=== PATIENT | female | born 1975 | race Two or more races ===

== ENCOUNTER 2020-11-05 09:44 | Outpatient (CLI) | payer OTHER | END 2020-11-05 23:59 | disposition home or self-care (01) | LOC: LAB 09:44 | PROVIDERS: ATTEND Specialist | DX: Z01.812 Encounter for preprocedural laboratory examination (principal); Z20.822 Contact with and (suspected) exposure to COVID-19 | CPT/HCPCS: 87426; C9803 ×2; U0003 ==

== ENCOUNTER 2020-11-10 06:46 | Day surgery (SDC) | payer OTHER ==
[2020-11-10] MEDS ORDERED: MIDAZOLAM HCL 2 MG/2ML VIAL ONE (07:57)
[2020-11-10] MEDS ORDERED: FENTANYL PF 250MCG/5ML AMPUL ONE (07:57)
[2020-11-10] MEDS ORDERED: HYDROMORPHONE INJ 2 MG/ML DISP.SYRIN ONE (07:58)
[2020-11-10] MEDS ORDERED: FENTANYL PF 100MCG/2ML AMPUL ONE (07:58)
[2020-11-10] MEDS ORDERED: ROCURONIUM BROMIDE 50 MG/5 ML ONE (07:59)
[2020-11-10] MEDS ORDERED: BUPIVACAINE 0.25% 75 MG/30 ML VIAL ONE (08:00)
[2020-11-10] MEDS ORDERED: BUPIVACAINE 0.5 % PF 150 MG/30 ML VIAL ONE (09:05)
[2020-11-10] MEDS ORDERED: BACITRACIN 50000 UNITS/VIAL ONE (09:06)
[2020-11-10] MEDS ORDERED: ONDANSETRON HCL/PF 4 MG/2 ML VIAL ONE (12:10)
== END 2020-11-10 12:40 | disposition home or self-care (01) ==
LOC: DS 06:46
PROVIDERS: ATTEND Specialist
DX: S42.002K Fracture of unspecified part of left clavicle, subsequent encounter for fracture with nonunion (principal); X58.XXXA Exposure to other specified factors, initial encounter; Y93.89 Activity, other specified; Y92.89 Other specified places as the place of occurrence of the external cause; Y99.8 Other external cause status
CPT/HCPCS: 23485; 84703; A6402; C1713 ×5; J1170; J2250; J2405; J3010 ×2; J3490 ×2; J0690; J2704; J2765